=== PATIENT | female | born 2000 | race Caucasian/White ===

== ENCOUNTER 2020-12-30 09:45 | Outpatient (RCR) | payer OTHER, SELFPAY ==
[2020-12-30 11:25] LABS: Hematocrit 32.3 % (37.0-47.0); Hemoglobin 10.7 g/dL (12.0-15.0)
[2020-12-30 11:42] LABS: Glucose 1 Hour PP 50gm Dose 107 mg/dL
[2020-12-30 12:21] LABS: HIV 1/2 Ab P24 Ag Result Negative (Negative)
[2020-12-30] MEDS: RHO(D) IMMUNE GLOBULIN 300 MCG/2 ML SYRINGE IM (20:05)
[2020-12-31 08:26] LABS: Rapid Plasma Reagin Non-Reactive (NonReactive)
== END 2021-03-30 23:59 | disposition home or self-care (01) ==
LOC: ANHLAB 09:45
PROVIDERS: PCP Family Medicine; Visit Provider Obstetrics & Gynecology
DX: Z29.13 Encounter for prophylactic Rho(D) immune globulin (principal); Z11.4 Encounter for screening for human immunodeficiency virus [HIV]; O36.0130 Maternal care for anti-D [Rh] antibodies, third trimester, not applicable or unspecified; Z3A.00 Weeks of gestation of pregnancy not specified
CPT/HCPCS: 36415; 82947; 85014; 85018; 85461; 86592; 86703; 90384; 96372; G0432; J2790

== ENCOUNTER 2021-03-08 19:20 | Observation (INO) | payer MEDICAID, SELFPAY ==
[2021-03-08 19:30] VITALS: BMI 33.5
--- NOTE | 2021-03-08 21:42 | OBADM ---
This patient, Daphnie Mendez, admitted to the OB room Labor/Delivery/Recovery 106 for observation. Patient/family oriented to hospital policies and general routines including ID bracelet, bed and alarms, visiting hours, pain management, procedures, bathroom and other care routines, personal items, smoking policy, room service/diet, and visiting hours. Patient/Family are encouraged to report perceived risks to care and to ask questions if they do not understand what they are told or what they should do.
--- NOTE | 2021-03-12 07:45 | PM.OBTRLD ---
OB - Triage/Final Diagnosis Visit Information Date of evaluation: 03/09/21 Reason for evaluation: threatened labor Comments/Additional reasons for admission: I have assessed the risk for this patient, Daphnie Mendez, and determined that she would benefit from observation care.
== END 2021-03-08 22:01 | disposition home or self-care (01) ==
PROVIDERS: Admitting Provider Obstetrics & Gynecology; Visit Provider Obstetrics & Gynecology
DX: O47.9 False labor, unspecified (principal); Z3A.00 Weeks of gestation of pregnancy not specified
CPT/HCPCS: G0378; G0379

== ENCOUNTER 2021-03-20 01:27 | Inpatient (IN) | payer MEDICAID, SELFPAY ==
[2021-03-20] VITALS (29 sets, daily range): BP systolic 103–132; BP diastolic 58–86; PULSE 66–92; RESP 16–18; TEMP 36.2–36.9; O2SAT 99; BMI 32.5
--- NOTE | 2021-03-20 02:54 | LDADM ---
This patient, Daphnie Mendez, was admitted to Labor/Delivery/Recovery 105 on 03/20/21 at 01:27. Plans for labor, pain management and were discussed with patient. Patient/family oriented to hospital policies and general routines including ID bracelet, bed and alarms, visiting hours, pain management, procedures, bathroom and other care routines, personal items, smoking policy, room service/diet and guest tray routines, infant security routines, and visiting hours. Patient/Family are encouraged to report perceived risks to care and to ask questions if they do not understand what they are told or what they should do. See OBIX for further documentation.
[2021-03-20 03:25] LABS: Basophils Percent Auto 0.3 % (0.2-1.2); Eosinophils Absolute Auto 0.1 K/mm3 (0-0.3); Eosinophils Percent Auto 0.7 % (0-4.4); Hematocrit 30.8 % (37.0-47.0); Hemoglobin 9.9 g/dL (12.0-15.0); Immature Granulocyte Absolute 0.08 K/mm3 (0.00-0.031); Immature Granulocyte Percent A 0.6 % (0-0.5); Lymphocytes Absolute Auto 1.94 K/mm3 (0.9-3.2); Lymphocytes Percent Auto 14.9 % (18.3-44.2); Mean Corpuscular HGB Conc 32.1 g/dl (32-36); Mean Corpuscular Volume 83.9 fl (80-100); Monocytes Absolute Auto 0.7 K/mm3 (0.1-0.6); Monocytes Percent Auto 5.4 % (2.6-8.5); Neutrophils Absolute Auto 10.2 K/mm3 (1.3-6.7); Neutrophils Percent Auto 78.1 % (45.5-73.1); Platelet Count Result 200 k/mm3 (150-375); Red Blood Count 3.67 M/mm3 (4.2-5.4)
[2021-03-20] MEDS: LACTATED RINGERS 1,000 ML 125 ML IV CONT ×2 (03:32→05:23)
[2021-03-20] MEDS: AMPICILLIN 2 GM/NS 100 ML 2 GM/100 ML BAG IVPB (03:33)
[2021-03-20 04:39] LABS: Amphetamine Screen Urine Negative (Negative); Barbiturate Screen Urine Negative (Negative); Benzodiazepines Screen Urine Negative (Negative); Cannabinoid Screen Urine Positive (Negative); Cocaine Screen Urine Negative (Negative); Methadone Screen Urine Negative (Negative); Opiate Screen Urine Negative (Negative); Phencyclidine Screen Urine Negative (Negative)
[2021-03-20] MEDS: OXYTOCIN 30 UNITS/NS 500 ML 30 UNITS/500 ML BAG IV CONT (05:20)
--- NOTE | 2021-03-20 07:27 | WPDOBADMIT ---
Obstetrics - Admit Note Admission Note: 21y/o @ 39 weeks came in [place] and desires staying for elective induction. 3-4//-2 AROM moderate amount of clear odorless fluid. Anticipate record reviewed. No pertinent additions to the history and/or any subsequent changes in the physical findings that are not consistent with the expected course of the were found. Additions to the history and/or subsequent changes in the physical findings follow. None.
[2021-03-20] MEDS: fentaNYL CITRATE INJ (*CRX) 100 MCG/2 ML VIAL IV PUSH (10:05)
[2021-03-20] MEDS: AMPICILLIN 1 GM/NS 50 ML 1 GM/50 ML BAG IVPB (10:09)
--- NOTE | 2021-03-20 11:22 | P.PCNOB_ITS ---
OB - Delivery Note Procedure Delivery date: 03/20/21 Procedure: Intrapartal events: None Induction method: AROM and per pitocin protocol Delivery monitor: external FHT and external uterine Route of delivery: Laceration Description: None Delivery repair: vicryl Specimen: No Quantitative Blood Loss (ml): 50 Anesthesia type: None Disposition: floor [place] Baby Date of : 03/20/21 Time of : 11:07 Weeks of gestation at delivery: 39 Infant gender: Female Weight (pounds): 7 Weight (ounces): 8 presentation: vertex score one minute: 9 score ten minutes: 9
[2021-03-20] MEDS: OXYTOCIN 30 UNITS/NS 500 ML 30 UNITS/500 ML BAG 125 UNITS IV CONT (11:40)
[2021-03-20] MEDS: IBUPROFEN 600 MG TABLET PO (15:16)
[2021-03-20] MEDS: ACETAMINOPHEN 325 MG TABLET 650 MG PO (17:27)
[2021-03-20] MEDS: DOCUSATE SODIUM 100 MG CAPSULE PO (17:28)
[2021-03-20] MEDS: POLYSACCHARIDE IRON COMPLEX 150 MG CAPSULE PO (17:28)
[2021-03-21] VITALS: BP 110/66; PULSE 69; RESP 16; TEMP 37.1; O2SAT 100
[2021-03-21] MEDS: ACETAMINOPHEN 325 MG TABLET 650 MG PO (03:26)
[2021-03-21 04:00] VITALS: BP 111/77; PULSE 61; RESP 16; TEMP 36.8; O2SAT 100
[2021-03-21 05:14] LABS: Hematocrit 30.8 % (37.0-47.0); Hemoglobin 9.7 g/dL (12.0-15.0)
[2021-03-21 07:50] VITALS: BP 111/71; PULSE 68; RESP 16; TEMP 36.5; O2SAT 100
--- NOTE | 2021-03-21 07:57 | PM.OBPNVD ---
OB - PN: Subj Subjective Date/time seen: 03/21/21 07:57 Patient comments: no complaints baby status: doing well OB - PN: Obj Data Labs CBC & Chem 7: 03/21/21 03:49 Labs: Laboratory Results - last 24 hr 03/21/21 03/21/21 03:49 03:49 Hgb 9.7 L Hct 30.8 L Blood Type O Negative Antibody Screen Negative Screen Negative Baby's Blood Type O pos Baby's HANH Negative Doses of RhIg Required 1 OB - PN A/P Plan day: 1 Plan: routine care Time Spent With Patient Time: Total time spent is greater than 50% in coordination of care (as documented) at patient's floor/unit and/or counseling patient: Review of Systems Review of Systems: All systems reviewed & are unremarkable except as noted in HPI and below Exam Const: General: cooperative and healthy appearing Psych: Affect: normal affect Thought process: Normal thought process present Thought content: Yes Normal thought content present
[2021-03-21] MEDS: IBUPROFEN 600 MG TABLET PO ×2 (08:05→17:52)
[2021-03-21] MEDS: DOCUSATE SODIUM 100 MG CAPSULE PO ×2 (08:05→17:52)
[2021-03-21] MEDS: POLYSACCHARIDE IRON COMPLEX 150 MG CAPSULE PO ×2 (08:05→17:52)
[2021-03-21] MEDS: MULTIVIT/MIN/PREN/FOL AC/IRON TABLET 1 TAB PO (08:05)
[2021-03-21] MEDS: FLUoxetine HCL 20 MG CAPSULE PO (08:05)
[2021-03-21 08:52] LABS: Rapid Plasma Reagin Non-Reactive (NonReactive)
--- NOTE | 2021-03-21 09:35 | PC.NURSE ---
Mother called out for assist with feeding, reporting slight tenderness with feedings. is able to freely thrust tongue past gum ridge and flange both lips. Skin is intact on both nipples, no redness and bruising noted. Reviewed infant feeding cues, frequencies, duration of feedings, feeding elimination flow sheet, and signs of adequate intake. Demonstrated stimulation techniques to wake for feeding. Assisted with to breast. Reviewed positioning/alignment in cross cradle, holding breast in ?U? hold and guided asymmetrical latch on. Reviewed rational for each. Infant able to latch correctly within a few attempts. Infant nursed eagerly with steady draws and occasional swallowing noted, some pausing noted. Reviewed signs of a correct latch, effective nursing and suck swallow ratio. Suggested mother stimulate while feeding to increase stimulate, increase intake and to assist with maintaining deep latch. Infant would slip to shallow latch causing tenderness. Demonstrated how to adjust latch more deeply while feeding if needed. Mother reports she can feel the difference in latch with no/less tenderness. Nipple care reviewed of lanolin after feedings, warm compresses as needed. Instructed mother to call out for RN assistance if she is unable to latch infant for feeding or she has discomfort with nursing. Instructed feeding should be initiated three hours from start of last feeding or if feeding cues are noted before. Mother voiced understanding of information shared.
[2021-03-21] MEDS: RHO(D) IMMUNE GLOBULIN 300 MCG/2 ML SYRINGE IM (13:26)
--- NOTE | 2021-03-21 16:11 | PCCCNOTE ---
Care Coordination met with pt. this afternoon to discuss discharge planning. Pt.'s current D/C plan is to return home with her significant other/FOB and two other children. Pt. states she has a 4 year old and 5 year old at home. Pt. has everything needed to safely bring baby home. Pt. confirms she will continue to breast feed baby at time of D/C. She is current with [facility]. Pt. has a stable hand set up for follow-up care and no open DCFS cases. Pt. informed that she tested positive for THC at time of admission. Pt. states she used Marijuana throughout to assist with symptoms and her depression. Pt. confirms she has started taking medication for her depression now that she has delivered. Pt. follows up with her primary doctor of medication management and will be follow-up with [facility]. Pt. denies any D/C needs or concerns at this time. Pt. has been provided resources and a basket. Will follow.
[2021-03-21 19:00] VITALS: BP 117/68; PULSE 73; RESP 16; TEMP 36.8; O2SAT 100
[2021-03-22] MEDS: TETANUS,DIPHTHERIA,AC PERTUSSIS ADULT (0.5 ML) BOOSTRIX IM (00:24)
--- NOTE | 2021-03-22 07:10 | PM.OBPNVD ---
OB - PN: Subj Subjective Date/time seen: 03/22/21 07:10 Patient comments: no complaints baby status: doing well OB - PN: Obj Data Labs CBC & Chem 7: 03/21/21 03:49 Labs: Laboratory Results - last 24 hr 03/20/21 03/21/21 03:15 03:49 RPR Non-reactive Blood Type O Negative Antibody Screen Negative Screen Negative Baby's Blood Type O pos Baby's HANH Negative Doses of RhIg Required 1 OB - PN A/P Plan day: 2 Plan: routine care and discharge home (F/U in 4 weeks) Time Spent With Patient Time: Total time spent is greater than 50% in coordination of care (as documented) at patient's floor/unit and/or counseling patient: Time with patient: less than 15 minutes Review of Systems Review of Systems: All systems reviewed & are unremarkable except as noted in HPI and below Exam Narrative: Fundus firm and vaginal flow controlled. No lower ext redness, warmth, or edema. Negative homans. Const: General: comfortable Chest: Breast/axilla inspection: normal inspection of the breasts Resp: Effort & Inspection: normal respiratory effort Cardio: Rate: regular rate GI: GI Palp: Yes Soft to palpation Psych: Appearance: grossly normal Affect: normal affect Attitude: cooperative Thought content: Yes Normal thought content present Judgement: Good judgement present (Psych)
--- NOTE | 2021-03-22 07:11 | P.DS_ITS ---
DS: Admitting Diagnosis Discharge Date 03/22/2021 Admitting Diagnosis Induction of labor OB - DS: Summary OB Procedures : None OB Procedures Intrapartum: Spontaneous Vag Delivery OB Procedures: : None Time Spent with Patient Time attestation: Total time spent providing and/or coordinating discharge services: DS: Data Data Completed and Pending Labs on day of discharge: Labs from last 24 hours 03/21/21 03/20/21 03:49 03:15 RPR Non-reactive Blood Type O Negative Antibody Screen Negative Screen Negative Baby's Blood Type O pos Baby's HANH Negative Doses of RhIg Required 1 Discharge Plan Discharge Attending physician on discharge: Jose Rafael Decker Discharging Clinician: Mariely Chacon Patient Disposition: Home, Self-Care Activity: pelvic rest Diet: as tolerated Patient Instructions: Antibiotic Form Stand Alone Forms: General Discharge Information Follow-up/Referrals: Mariely Chacon, CNM [Certified Nurse Physiotherapist'S Assistant] - Discharge Medications: Continued fluoxetine 20 mg Tablet 20 mg PO DAILY RF: 0 prenat.vits,jesus,dfv-wnso-jeziw Tablet 1 tablet PO DAILY RF: 0 ferrous sulfate 250 mg (50 mg iron) Tablet Extended Release 250 mg PO DAILY RF: 0 Date of admission: 03/20/21 01:27 Primary Care Provider: Johnie Cason Admitting Provider: Jose Rafael Decker Attending physician on admission: Jose Rafael Decker Condition: Stable
[2021-03-22] MEDS: IBUPROFEN 600 MG TABLET PO (07:38)
[2021-03-22] MEDS: MULTIVIT/MIN/PREN/FOL AC/IRON TABLET 1 TAB PO (07:38)
[2021-03-22] MEDS: DOCUSATE SODIUM 100 MG CAPSULE PO (07:38)
[2021-03-22] MEDS: FLUoxetine HCL 20 MG CAPSULE PO (07:38)
[2021-03-22] MEDS: POLYSACCHARIDE IRON COMPLEX 150 MG CAPSULE PO (07:38)
[2021-03-22 07:40] VITALS: BP 130/79; PULSE 83; RESP 18; TEMP 36.3
--- NOTE | 2021-03-22 07:40 | PC.NURSE ---
Patient instructed to view the discharge video Mother & Baby Care, The First Two Weeks . Patient was given the opportunity and encouraged to ask questions. Patient verbalized understanding of information shared and has been given the mother/baby guide for home reference.
== END 2021-03-22 11:45 | disposition home or self-care (01) | DRG 560 ==
LOC: ANHLDR 03:10 → ANHOB2 14:32
PROVIDERS: Advanced Practice Midwife; Admitting Provider Obstetrics & Gynecology; PCP Family Medicine; Visit Provider Obstetrics & Gynecology
DX: O99.824 Streptococcus B carrier state complicating childbirth (principal); O70.1 Second degree perineal laceration during delivery; Z3A.39 39 weeks gestation of pregnancy; Z37.0 Single live birth
CPT/HCPCS: 36415; 80307; 85014; 85018; 85025; 85461; 86592; 86850; 86900; 86901; 90384; 90715; A9270; J0290; J2590; J2790; J3010; J7120

== ENCOUNTER 2025-02-08 16:34 | Emergency (ER) | payer OTHER, SELFPAY ==
--- NOTE | ~2025-02-08 | US_ITS ---
EXAM: ABDOMEN ULTRASOUND HISTORY: RUQ abd pain radiating to back COMPARISON: Reference is made to a CT examination of the abdomen and pelvis performed approximately 4 5 minutes earlier demonstrating a large right-sided ovarian cyst for which pelvic ultrasound is recom mended. Reference is also made to a limited ultrasound of the right upper quadrant performed 04/14/2016 FINDINGS: LIVER: The liver is unremarkable in echogenicity and size. The portal vein is patent, demonstrating hepatopedal flow. GALLBLADDER: No stones are identified within the gallbladder. A 5 x 6 mm avascular nonshadowing structure is identified along the anterior lateral wall of the gall bladder, likely a gallbladder polyp. No gallbladder wall thickening or pericholecystic fluid. BILE DUCTS: Common bile duct measures 2.3mm. PANCREAS: Limited evaluation of the pancreas secondary to overlying bowel gas IMPRESSION: Limited evaluation of the pancreas secondary to overlying bowel gas 6 mm avascular nonshadowing structure along the undersurface of the anterior lateral wall of the gall bladder for which a polyp is suspected. Otherwise, unremarkable sonographic evaluation of the right upper quadrant, as detailed above. Reviewed, dictated and finalized at location A. IMPRESSION: Limited evaluation of the pancreas secondary to overlying bowel gas 6 mm avascular nonshadowing structure along the undersurface of the anterior la teral wall of the gallbladder for which a polyp is suspected. Otherwise, unremarkable sonographic evaluation of the right upper quadrant, as detailed above.
--- NOTE | ~2025-02-08 | US_ITS ---
EXAM: PELVIC ULTRASOUND HISTORY: R ovary abnml on CT, rads recommends US COMPARISON: . Reference is also made to the CT examination of the abdomen and pelvis performed the same day, approx imately 1 hour earlier FINDINGS: UTERUS: 7.6 x 4.4 x 5.8 cm. The uterus is retroverted and retroflexed. The endometrial complex measures 9, and contains the intrauterine device and surrounding complex debr is. RIGHT OVARY: The right ovary is abnormal in echogenicity and size measuring 4.7 x 4.7 x 4.4 cm. Dopplerable flow is identified. A single anechoic avascular focus is identified within the right ovary measuring 35 x 45 x 43 mm, con sistent with a simple cyst. Surrounding free fluid is identified within the right adnexa. LEFT OVARY: The left ovary is unremarkable in echogenicity and size measuring 2.2 x 1.6 x 1.7 cm Dopplerable flow is identified. Moderate free fluid is identified within the right adnexa and within the deep pelvis, to the right of midline. IMPRESSION: Simple cyst within the right ovary measuring 4.5 cm in greatest dimension for which yearly followup i s recommended until resolution (given that this patient is premenopausal). PLUMBING ENGINEER follow-up is recommended. Reviewed, dictated and finalized at location A. IMPRESSION: Simple cyst within the right ovary measuring 4.5 cm in greatest dimension [facility] is recommended until resolution (given that this patient i s premenopausal). PLUMBING ENGINEER follow-up is recommended.
--- NOTE | ~2025-02-08 | CT_ITS ---
CLINICAL INDICATION: Epigastric and lower abdominal pain, nausea and diarrhea. COMPARISON: None. TECHNIQUE: Multiple contiguous axial images of the abdomen and pelvis were performed following the ad ministration of with 100 mL Omnipaque-350 intravenous contrast The dose-length product (DLP) was 575.79 mGy-cm. Automated exposure control and iterative reconstruction technique were employed. FINDINGS/OBSERVATIONS: Visualized lower thorax: The bilateral lung bases are clear. The heart is of normal size, without pericardial effusion. Liver: The liver demonstrates homogeneous enhancement and is not enlarged. Gallbladder and biliary system: The gallbladder is only minimally distended, and otherwise unremarkable. Pancreas: The pancreas enhances homogeneously without ductal dilatation. Spleen: The spleen enhances homogeneously and is enlarged measuring 14 cm in longitudinal dimension. Kidneys: The bilateral kidneys enhance symmetrically without hydronephrosis or renal calculi. Adrenal glands: Unremarkable. Gastrointestinal tract: The colon is distended with fluid with trace mural thickening, consistent with patient's history of f requent diarrhea. Appendix: The air-filled appendix is of normal caliber (axial series, images 132 through 145). Vasculature: Unremarkable. Lymph nodes: No pathologically enlarged or morphologically suspicious lymph nodes within the retroperitoneum or at the root of the mesentery. Pelvic structures: The bladder is only minimally distended, limiting its evaluation The uterus is retroverted and retroflexed. Intrauterine device within the endometrial canal A well-circumscribed focus of decreased attenuation (consistent with dense fluid) is identified withi n the right hemipelvis measuring 4.5 x 4.6 x 4.2 cm, for which pelvic ultrasound is recommended. Dense free fluid is identified within the posterior cul-de-sac, more than one would expect for physio logic free fluid. Body wall and musculoskeletal: Small fat-containing umbilical hernia. Trace degenerative disease within the lower thoracic and lumbosacral spines. IMPRESSION: Findings within the right ovary for which pelvic ultrasound suggested for further evaluation, as deta iled above. Fluid-filled colon demonstrates trace mural thickening, consistent with patient's history. Reviewed, dictated and finalized at location A. IMPRESSION: Findings within the right ovary for which pelvic ultrasound suggested for furth er evaluation, as detailed above. Fluid-filled colon demonstrates trace mural thickening, consistent with patien t's history.
--- OUTSIDE RECORDS SUMMARY | 2025-02-08 16:36 | XMS_ITS | Clinical Summary ---
Author Organization [facility] Address [address] [place] [address] Care Team Providers Care Real Estate Site Analyst Name Role Phone Max Campos MD Primary Care Provider [phone] Source Comments [facility],non-owned Affiliates and Associated Physician Practices is amultiple site organization consisting of ambulatory clinics and hospital sitesin [place], [place], [place] and [place]. This disclosure is being madepursuant to the Care Everywhere program and may not contain all information available regarding this patient. 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 Gender Identity Not on file Sexual Orientation Not on file Plan of Treatment Health Maintenance Due Date Last Done Comments HIV SCREENING 01/30/2015 HPV VACCINE (1 - 3-dose series) 01/30/2015 CHLAMYDIA/GONORRHEA SCREENING 2016 HEPATITIS C SCREENING 01/26/2018 DTAP/TDAP/TD VACCINES (1 - Tdap) 01/30/2019 HEPATITIS B VACCINE (1 of 3 - 19+ 3-dose series) 01/30/2019 COVID-19 VACCINE (1 - 2023-2 5 season) 2024 DEPRESSION SCREENING 07/05/2024 INFLUENZA VACCINE (#1) 2025 ZOSTER VACCINE (1 of 2) 01/30/2050 MENINGOCOCCAL GROUPS A/C/Y/W VACCINE Completed 04/19/2017 HIB VACCINE Aged Out No longer eligi ble based on patient's age to complete this topic MENINGOCOCCAL (Group B) VACC INE SHARED DECISION-MAKING Aged Out No longer eligibl e based on patient's age to complete this topic PNEUMOCOCCAL VACCINE Aged Out No long er eligible based on patient's age to complete this topic Care Teams Real Estate Site Analyst Relationship Specialty Start Date End Date Max Campos MD [id number] [place] [address] PCP - General Family Medicine 04/19/17
[2025-02-08 16:49] VITALS: BP 124/71; PULSE 88; RESP 20; TEMP 36.6; O2SAT 100
--- NOTE | 2025-02-08 16:53 | ED_ITS ---
HPI - Abdominal Pain General Chief Complaint: Abdominal Pain <Denise Olmstead PA-C - Last Filed: 02/08/25 16:54> Stated Complaint: abdominal pain <Denise Olmstead PA-C - Last Filed: 02/08/25 16:54> Time Seen by Provider: 02/08/25 19:13 <Denise Olmstead PA-C - Last Filed: 02/08/25 16:54> Focused HPI: 25-year-old female presents emergency department for abdominal pain, nausea, diarrhea for the past 3 days. Patient states the pain in her abdomen is in her epigastrium, back and lower abdomen. She describes the pain as a cramping sensation that is intermittent. She went to [facility] emergency department yesterday and was diagnosed with viral gastroenteritis. States she had lab work performed and had IV fluids and Zofran. She did not have any imaging obtained. She denies dysuria, hematuria. She does note that she has had several bouts of diarrhea since the onset of symptoms. She was on Flagyl about a month ago for BV. She denies vaginal discharge or concern for STDs. Patient denies any recent travel. Denies fevers. GENERAL: Tearful, appears uncomfortable HEAD: Normocephalic, atraumatic. CHEST: Clear to auscultation. ?No respiratory distress. ABD: Abdomen soft with tenderness in epigastrium. No rebound or rigidity. No CVA tenderness HEART: Regular rate and rhythm.? NEURO: ?Alert and oriented x3. Patient screened in triage and initial orders placed.? ?Additional care and disposition to be based upon?diagnostic testing and treatment. <Denise Olmstead PA-C - Last Filed: 02/08/25 16:54> History of Present Illness HPI narrative: Agree with the above with the following additions/corrections: 25-year-old female presents with epigastric/right upper quadrant abdominal pain going on for 3 days. Seen at [facility] yesterday and labs and fluid/meds but no imaging performed. She states she has had 5 days of diarrhea that has been nonbloody although she states she might have fissures (?). Patient has been using Tylenol and Motrin until she ran out of these medications. She was not using a lot of NSAIDs prior to her symptoms beginning. Drinks alcohol occasionally. Uses marijuana every few days he no previous abdominal surgeries. She had been nauseated but feels better after receiving medications. Last episode of emesis was 2 days ago. 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 Subjective fevers although her measured temperature was 99.2? when she took it after her noted that she appeared flushed. She has been having chills. Occasionally she will experience low abdominal pain which she states feels like with contractions as well as round ligament pain, familiar with both previously. <Sindi Del Castillo MD - Last Filed: 02/08/25 23:19> Related Data Home Medications: Home Medications ?Medication ?Instructions ?Recorded ?Confirmed ?Last Taken ?Type ferrous sulfate 250 mg (50 mg 250 mg PO DAILY 02/26/21 02/26/21 02/25/21 17:00 History iron) tablet,extended release fluoxetine 20 mg tablet 20 mg PO DAILY 02/26/21 02/26/21 02/25/21 17:00 History prenat.vits,jesus,rjy-[id number]-[id number] 1 tablet PO DAILY 02/26/21 02/26/21 02/26/21 08:00 History <Denise Olmstead PA-C - Last Filed: 02/08/25 16:54> Allergies/Adverse Reactions: Allergies Allergy/AdvReac Type Severity Reaction Status Date / Time buspirone (From BuSpar) Allergy Hives Verified 02/08/25 16:35 <Denise Olmstead PA-C - Last Filed: 02/08/25 16:54> [facility] Past Medical History Medical History: Medical History (Updated 02/08/25 @ 22:30 by Sindi Del Castillo MD) BMI 31.0-31.9,adult Gall bladder disease Diabetes Anxiety <Denise Olmstead PA-C - Last Filed: 02/08/25 16:54> Surgical History Surgical History: Surgical History No significant past surgical history <Denise Olmstead PA-C - Last Filed: 02/08/25 16:54> Family History Family History: Family History Father Hypertension Mother Anxiety Depression Gall bladder pain Sibling Anxiety Depression Grandparent Breast cancer Alzheimer disease <Denise Olmstead PA-C - Last Filed: 02/08/25 16:54> Social History Social History: Social History Social History: Smoking status: Never smoker Tobacco type: cigarettes Second hand tobacco smoke exposure: No Alcohol intake: former Substance use: current Substance use type: marijuana Other substance usage details: Every few days Living arrangements: with family Additional living arrangements comments: Occupation/Education: unemployed 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 HEAD: Normocephalic, atraumatic. EYES: Non injected, non icteric ENT: Nares clear, no rhinorrhea or epistaxis. Gross auditory acuity intact. NECK: Supple. No meningismus. CHEST: Speaking in full sentences. No respiratory distress. HEART: Regular rate and rhythm. . ABDOMEN: Soft, nondistended. No rigidity or guarding. Not peritoneal. No overlying ecchymosis. She had taken bellybutton ring out and replaced the holes with a catheter sheeth in the interim EXTREMITIES: Normal range of motion. No lower extremity edema. SKIN: Warm, dry, no rash. NEURO: No focal deficits. Alert and oriented. Answering questions. Following commands. Normal speech without aphasia or dysarthria. PSYCH: Normal mood and affect. <Sindi Del Castillo MD - Last Filed: 02/08/25 23:19> Course Vital Signs Vital signs: Vital Signs Temperature 97.8 F 02/08/25 16:49 Pulse Rate 88 02/08/25 16:49 Respiratory Rate 20 02/08/25 16:49 Blood Pressure 124/71 02/08/25 16:49 Pulse Oximetry 100 02/08/25 16:49 Oxygen Delivery Room Air 02/08/25 16:49 Temperature 97.8 F 02/08/25 16:49 Pulse Rate 81 02/08/25 22:57 Respiratory Rate 18 02/08/25 22:57 Blood Pressure 121/68 02/08/25 22:57 Pulse Oximetry 100 02/08/25 22:57 Oxygen Delivery Room Air 02/08/25 19:34 <Denise Olmstead PA-C - Last Filed: 02/08/25 16:54> Vital Signs Temperature 97.8 F 02/08/25 16:49 Pulse Rate 88 02/08/25 16:49 Respiratory Rate 20 02/08/25 16:49 Blood Pressure 124/71 02/08/25 16:49 Pulse Oximetry 100 02/08/25 16:49 Oxygen Delivery Room Air 02/08/25 16:49 Temperature 97.8 F 02/08/25 16:49 Pulse Rate 81 02/08/25 22:57 Respiratory Rate 18 02/08/25 22:57 Blood Pressure 121/68 02/08/25 22:57 Pulse Oximetry 100 02/08/25 22:57 Oxygen Delivery Room Air 02/08/25 19:34 <Sindi Del Castillo MD - Last Filed: 02/08/25 23:19> MDM - Abdominal Pain MDM Narrative Medical decision making narrative: MSE in triage 25-year-old female presents with epigastric/right upper quadrant abdominal pain of 3 days duration. Also some lower abd pain. Associated with 5 days of diarrhea. Seen for the same at [facility] yesterday but no imaging performed and not improving. In the emergency department they are afebrile with vital signs within normal limits. The differential for acute ( less than 14d) diarrhea includes infectious etiologies (viral, preformed toxins, toxins formed after colonization, invasive bacteria, and parasites), medications, inflammatory causes (IBD, radiation enteritis, ischemic colitis, diverticulitis), malabsorption, secretory causes, or motility disorders. CBC with abnormalities on the differential but otherwise without anemia, thrombocytopenia, leukocytosis. Lipase normal. Negative . Patient feeling a bit better after IV fluids, antiemetic and famotidine ordered from triage. C diff negative. Based on the CT with the abnormalities noted, proceeded with ultrasound imaging of both. These resulted as below. Provided prescriptions for [id number] analgesics medications, Bentyl, and Zofran. Advised follow-up with PCP but also given referrals for OB Gyne in general surgery as needed. Discharged home in stable condition. Observed ambulating out of room not of department and appears to be feeling better, ambulates with steady gait. <Sindi Del Castillo MD - Last Filed: 02/08/25 23:19> Differential Diagnosis Differential diagnosis: Likely abdominal pain, constipation, diverticulitis, endometriosis, gastroenteritis, pancreatitis and other (Biliary etiology, gastritis, GERD, enteritis, sequelae of diarrhea; cannabinoid hyperemesis syndrome; acute viral process) <Sindi Del Castillo MD - Last Filed: 02/08/25 23:19> Medical Records Attestation: I reviewed the patient's medical records. <Sindi Del Castillo MD - Last Filed: 02/08/25 23:19> Medical records narrative: History gallbladder disease per review of EMR <Sindi Del Castillo MD - Last Filed: 02/08/25 23:19> Lab Data Attestation: I reviewed the patient's lab results. <Sindi Del Castillo MD - Last Filed: 02/08/25 23:19> Lab results narrative: Chemistry with normal renal function in no marked abnormalities <Sindi Del Castillo MD - Last Filed: 02/08/25 23:19> Result diagrams: 02/08/25 18:40 02/08/25 18:40 <Denise Olmstead PA-C - Last Filed: 02/08/25 16:54> Labs: Lab Results 02/08/25 02/08/25 Range/Units 18:35 18:40 WBC 8.1 (4.5-10.0) K/mm3 RBC 4.78 (4.2-5.4) M/mm3 Hgb 14.4 D (12.0-15.0) g/dL Hct 42.4 (37.0-47.0) % MCV 88.7 (80-100) fl MCH 30.1 (26-34) pg MCHC 34.0 (32-36) g/dl RDW 12.3 (11.5-14.5) % Plt Count 229 (150-375) k/mm3 MPV 9.7 (7.4-10.4) fl Immature Gran % (Auto) 0.2 (0-0.5) % Neut % (Auto) 74.6 H (45.5-73.1) % Lymph % (Auto) 13.6 L (18.3-44.2) % O'Brien % (Auto) 9.5 H (2.6-8.5) % Eos % (Auto) 1.7 (0-4.4) % Baso % (Auto) 0.4 (0.2-1.2) % Lymph # (Auto) 1.10 (0.9-3.2) K/mm3 O'Brien # (Auto) 0.8 H (0.1-0.6) K/mm3 Eos # (Auto) 0.1 (0-0.3) K/mm3 Baso # (Auto) 0.0 (0.0-0.1) K/mm3 Abs Immat Gran (auto) 0.02 (0.00-0.031) K/mm3 Absolute Neuts (auto) 6.0 (1.3-6.7) K/mm3 Absolute Nucleated RBC 0.000 (0.0-0.012) K/mm3 Nucleated RBC % 0.0 (0.0-0.2) % Sodium 139 (137-145) mmol/L Potassium 3.6 (3.4-5.0) mmol/L Chloride 105 (98-107) mmol/L Carbon Dioxide 24 (22-30) mmol/L Anion Gap 10 (4-12) mmol/L BUN 4 L (7-17) mg/dL Creatinine 0.63 L (0.7-1.0) mg/dL Estim Creat Clear Calc 127 ml/min Estimated GFR > 60 (59 - ) Glucose 87 (65-110) mg/dL Calcium 9.1 (8.4-10.2) mg/dL Total Bilirubin 0.7 (0.2-1.3) mg/dL AST 29 (14-36) U/L ALT 19 (6-35) U/L Alkaline Phosphatase 62 (38-126) U/L Total Protein 7.9 (6.3-8.2) g/dL Albumin 4.4 (3.5-5.1) g/dL Lipase 36 (23-300) U/L Urine Color Yellow (Yellow) Urine Appearance Clear (Clear) Urine pH 7.5 (5.0-9.0) Ur Specific [place] 1.006 (1.001-1.035) Urine Protein Negative (Negative) mg/dL Urine Glucose (UA) Negative (Negative) mg/dL Urine Ketones Trace H (Negative) mg/dL Ur Blood (Man) Negative (Negative) Urine Nitrate Negative (Negative) Urine Bilirubin Negative (Negative) Urine Urobilinogen 0.2 (<2.0) mg/dL Leukocyte Esterase Rfl Trace H (Negative) JUAN/UL Urine RBC 0-2 (0-2) /hpf Urine WBC 0-5 (0-3) /hpf Ur Squamous Epith Cells None seen (Few) /hpf Urine Bacteria None seen /hpf Urine Casts 0-2 POC Urine HCG, Qual Negative (Negative) C. difficile (PCR) Negative (NEGATIVE) <Denise Olmstead PA-C - Last Filed: 02/08/25 16:54> Lab Results 02/08/25 02/08/25 Range/Units 18:35 18:40 WBC 8.1 (4.5-10.0) K/mm3 RBC 4.78 (4.2-5.4) M/mm3 Hgb 14.4 D (12.0-15.0) g/dL Hct 42.4 (37.0-47.0) % MCV 88.7 (80-100) fl MCH 30.1 (26-34) pg MCHC 34.0 (32-36) g/dl RDW 12.3 (11.5-14.5) % Plt Count 229 (150-375) k/mm3 MPV 9.7 (7.4-10.4) fl Immature Gran % (Auto) 0.2 (0-0.5) % Neut % (Auto) 74.6 H (45.5-73.1) % Lymph % (Auto) 13.6 L (18.3-44.2) % O'Brien % (Auto) 9.5 H (2.6-8.5) % Eos % (Auto) 1.7 (0-4.4) % Baso % (Auto) 0.4 (0.2-1.2) % Lymph # (Auto) 1.10 (0.9-3.2) K/mm3 [place]Brien # (Auto) 0.8 H (0.1-0.6) K/mm3 Eos # (Auto) 0.1 (0-0.3) K/mm3 Baso # (Auto) 0.0 (0.0-0.1) K/mm3 Abs Immat Gran (auto) 0.02 (0.00-0.031) K/mm3 Absolute Neuts (auto) 6.0 (1.3-6.7) K/mm3 Absolute Nucleated RBC 0.000 (0.0-0.012) K/mm3 Nucleated RBC % 0.0 (0.0-0.2) % Sodium 139 (137-145) mmol/L Potassium 3.6 (3.4-5.0) mmol/L Chloride 105 (98-107) mmol/L Carbon Dioxide 24 (22-30) mmol/L Anion Gap 10 (4-12) mmol/L BUN 4 L (7-17) mg/dL Creatinine 0.63 L (0.7-1.0) mg/dL Estim Creat Clear Calc 127 ml/min Estimated GFR > 60 (59 - ) Glucose 87 (65-110) mg/dL Calcium 9.1 (8.4-10.2) mg/dL Total Bilirubin 0.7 (0.2-1.3) mg/dL AST 29 (14-36) U/L ALT 19 (6-35) U/L Alkaline Phosphatase 62 (38-126) U/L Total Protein 7.9 (6.3-8.2) g/dL Albumin 4.4 (3.5-5.1) g/dL Lipase 36 (23-300) U/L Urine Color Yellow (Yellow) Urine Appearance Clear (Clear) Urine pH 7.5 (5.0-9.0) Ur Specific [place] 1.006 (1.001-1.035) Urine Protein Negative (Negative) mg/dL Urine Glucose (UA) Negative (Negative) mg/dL Urine Ketones Trace H (Negative) mg/dL Ur Blood (Man) Negative (Negative) Urine Nitrate Negative (Negative) Urine Bilirubin Negative (Negative) Urine Urobilinogen 0.2 (<2.0) mg/dL Leukocyte Esterase Rfl Trace H (Negative) JUAN/UL Urine RBC 0-2 (0-2) /hpf Urine WBC 0-5 (0-3) /hpf Ur Squamous Epith Cells None seen (Few) /hpf Urine Bacteria None seen /hpf Urine Casts 0-2 POC Urine HCG, Qual Negative (Negative) C. difficile (PCR) Negative (NEGATIVE) <Sindi Del Castillo MD - Last Filed: 02/08/25 23:19> Imaging Data Radiologist's impression: ITS Impressions Abdomen/Pelvis CT 02/08/25 19:37 IMPRESSION: Findings within the right ovary for which pelvic ultrasound suggested for further evaluation, as detailed above. Fluid-filled colon demonstrates trace mural thickening, consistent with patient's history. Abdomen Ultrasound 02/08/25 20:42 IMPRESSION: Limited evaluation of the pancreas secondary to overlying bowel gas 6 mm avascular nonshadowing structure along the undersurface of the anterior lateral wall of the gallbladder for which a polyp is suspected. Otherwise, unremarkable sonographic evaluation of the right upper quadrant, as detailed above. Transvaginal US 02/08/25 21:27 IMPRESSION: Simple cyst within the right ovary measuring 4.5 cm in greatest dimension for which yearly followup is recommended until resolution (given that this patient is premenopausal). GEOSPATIAL SCIENTIST follow-up is recommended. <Denise Olmstead PA-C - Last Filed: 02/08/25 16:54> ITS Impressions Abdomen/Pelvis CT 02/08/25 19:37 IMPRESSION: Findings within the right ovary for which pelvic ultrasound suggested for further evaluation, as detailed above. Fluid-filled colon demonstrates trace mural thickening, consistent with patient's history. Abdomen Ultrasound 02/08/25 20:42 IMPRESSION: Limited evaluation of the pancreas secondary to overlying bowel gas 6 mm avascular nonshadowing structure along the undersurface of the anterior lateral wall of the gallbladder for which a polyp is suspected. Otherwise, unremarkable sonographic evaluation of the right upper quadrant, as detailed above. Transvaginal US 02/08/25 21:27 IMPRESSION: Simple cyst within the right ovary measuring 4.5 cm in greatest dimension for which yearly followup is recommended until resolution (given that this patient is premenopausal). GEOSPATIAL SCIENTIST follow-up is recommended. <Sindi Del Castillo MD - Last Filed: 02/08/25 23:19> Discharge Plan Discharge Clinical Impression: Abdominal pain, RUQ, Acute diarrhea, Abnormal ultrasound of gallbladder, Biliary colic, Cyst of right ovary <Denise Olmstead PA-C - Last Filed: 02/08/25 16:54> Patient Disposition: Home <Denise Olmstead PA-C - Last Filed: 02/08/25 16:54> Condition: Stable <Denise Olmstead PA-C - Last Filed: 02/08/25 16:54> Instructions: Antibiotic Form, Ovarian Cyst (ED), Biliary Colic (ED), Acute Diarrhea (ED), Abdominal Pain (ED) <Denise Olmstead PA-C - Last Filed: 02/08/25 16:54> Additional Instructions: Your gallbladder showed some shadowing on ultrasound felt to represent a polyp. No surgical emergency. However, your symptoms sound consistent with biliary colic and I advise you start with diet modification to see if symptoms improve. If your attacks continue/become more frequent, you can discuss with a general surgeon elective removal. In addition you had a Simple cyst within the right ovary measuring 4.5 cm in greatest dimension for which yearly followup is recommended until resolution (given you are premenopausal). GEOSPATIAL SCIENTIST follow-up is recommended. 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 NSAIDs like ibuprofen/Motrin usually work better for this type of pain as it also helps with inflammation. Acetaminophen/Tylenol (maximum 4000 mg per day) is safe to take with NSAIDs (ibuprofen/Motrin) for pain relief. For the diarrhea, rest and maintain your hydration. Drink plenty of water. Can supplement with pedialyte/Gatorade (does not have to be name brand). Recommend avoiding using Immodium AD unless absolutely necessary as it needs to run its course. If you have nausea/vomiting, the disintegrating tablets of ondansetron/Zofran may help. The Bentyl/dicyclomine can help with the cramping sensation as it works on the smooth muscle of the GI tract. <MADISON Adhikari Last Filed: 02/08/25 16:54> Patient Language: [place] <MADISON Adhikari Last Filed: 02/08/25 16:54> Prescriptions: New ondansetron 4 mg tablet,disintegrating 4 mg PO Q8H PRN (Reason: nausea and vomiting) Qty: 7 0RF dicyclomine 10 mg capsule 10 mg PO BID PRN (Reason: abdominal pain) Qty: 10 0RF ibuprofen 600 mg tablet 600 mg PO TID PRN (Reason: pain) Qty: 30 0RF acetaminophen 500 mg capsule 1,000 mg PO Q6H PRN (Reason: pain) Qty: 30 0RF No Action fluoxetine 20 mg Tablet 20 mg PO DAILY prenat.vits,jesus,kyk-hjms-badqj Tablet 1 tablet PO DAILY ferrous sulfate 250 mg (50 mg iron) Tablet Extended Release 250 mg PO DAILY <Denise Olmstead PA-C - Last Filed: 02/08/25 16:54> Follow-up/Referrals: Yusef Mas MD [Physician] - Johnie Cason MD [Primary Care Provider] - Jaylan Anderson MD [Physician] - (general surgery) <Denise Olmstead PA-C - Last Filed: 02/08/25 16:54> Stand Alone Forms: Work/School Release IP <Denise Olmstead PA-C - Last Filed: 02/08/25 16:54> Time of Disposition: 22:34 <Denise Olmstead PA-C - Last Filed: 02/08/25 16:54> 22:34 <Sindi Del Castillo MD - Last Filed: 02/08/25 23:19>
[2025-02-08 18:37] LABS: BEDSIDEPREGUCG Negative (Negative)
[2025-02-08] MEDS: ONDANSETRON INJ 4 MG/2 ML VIAL IV PUSH (18:43)
[2025-02-08 18:57] LABS: Hematocrit 42.4 % (37.0-47.0); Hemoglobin 14.4 g/dL (12.0-15.0); Immature Granulocyte Percent A 0.2 % (0-0.5); Lymphocytes Absolute Auto 1.10 K/mm3 (0.9-3.2); Mean Corpuscular HGB Conc 34.0 g/dl (32-36); Mean Corpuscular Hemoglobin 30.1 pg (26-34); Mean Corpuscular Volume 88.7 fl (80-100); Nucleated Red Blood Cells Absolute Auto 0.000 K/mm3 (0.0-0.012); Nucleated Red Blood Cells Perc 0.0 % (0.0-0.2); Platelet Count Result 229 k/mm3 (150-375); Red Blood Count 4.78 M/mm3 (4.2-5.4); White Blood Count 8.1 K/mm3 (4.5-10.0)
[2025-02-08 19:01] LABS: Add Urine Microscopic? YES; Appearance Urine Clear (Clear); Glucose Urine UA Negative (Negative); Leukocyte Esterase Ur Trace LEU/UL (Negative); Nitrate Urine Negative (Negative); Non Pathogenic Casts 0-2; Specific Grav Ur 1.006 (1.001-1.035)
[2025-02-08 19:07] LABS: Alanine Aminotransferase 19 U/L (6-35); Albumin Level 4.4 g/dL (3.5-5.1); Alkaline Phosphatase 62 U/L (38-126); Anion Gap 10 mmol/L (4-12); Aspartate Amino Transferase 29 U/L (14-36); Bilirubin,Total 0.7 mg/dL (0.2-1.3); Blood Urea Nitrogen 4 mg/dL (7-17); Calcium 9.1 mg/dL (8.4-10.2); Carbon Dioxide 24 mmol/L (22-30); Chloride 105 mmol/L (98-107); Estimated CRCL calculation 127 ml/min; Estimated Glomerular Filt Rate > 60; Glucose 87 mg/dL (65-110); Lipase 36 U/L (23-300); Potassium 3.6 mmol/L (3.4-5.0); Sodium 139 mmol/L (137-145); Total Protein 7.9 g/dL (6.3-8.2)
[2025-02-08 19:34] VITALS: BP 119/72; PULSE 81; RESP 18; O2SAT 100
[2025-02-08] MEDS: SODIUM CHLORIDE 0.9% IV 1,000 ML 999 ML IV CONT (19:34)
[2025-02-08] MEDS: FAMOTIDINE 20 MG/2 ML VIAL IV PUSH (19:34)
[2025-02-08 19:43] LABS: Toxigenic C. Diff NEGATIVE (NEGATIVE)
--- OUTSIDE RECORDS SUMMARY | 2025-02-08 19:57 | XMS_ITS | Clinical Summary ---
Author Organization [facility] Address [address] [place] [address] Care Team Providers Care Claims Clerk Name Role Phone Max Campos MD Primary Care Provider [phone] Source Comments [facility],non-owned Affiliates and Associated Physician Practices is amultiple site organization consisting of ambulatory clinics and hospital sitesin [place], [place], [place] and [place]. This disclosure is being madepursuant to the Care Everywhere program and may not contain all information available regarding this patient. 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
[2025-02-08 21:29] VITALS: BP 104/55; PULSE 67; RESP 18; O2SAT 99
[2025-02-08] MEDS: DICYCLOMINE HCL 10 MG CAPSULE PO (22:56)
[2025-02-08 22:57] VITALS: BP 121/68; PULSE 81; RESP 18; O2SAT 100
== END 2025-02-08 22:58 | disposition home or self-care (01) ==
PROVIDERS: Physician Assistant; Emergency Provider Student in an Organized Health Care Education/Training Program; PCP Family Medicine
DX: R10.11 Right upper quadrant pain (principal); R19.7 Diarrhea, unspecified; N83.291 Other ovarian cyst, right side; R93.2 Abnormal findings on diagnostic imaging of liver and biliary tract; E11.9 Type 2 diabetes mellitus without complications; F41.9 Anxiety disorder, unspecified; Z79.899 Other long term (current) drug therapy
CPT/HCPCS: 36415; 74177; 76705; 76830; 80053; 81001; 81025; 83690; 85025; 87045; 87046; 87427; 87493; 96361; 96374; 96375; 99284; A9270; J2405; J7030; Q9967

== ENCOUNTER 2025-02-12 00:26 | Emergency (ER) | payer OTHER, SELFPAY ==
--- OUTSIDE RECORDS SUMMARY | 2025-02-12 00:28 | XMS_ITS | Clinical Summary ---
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non-owned Affiliates and Associated Physician Practices is amultiple site organization consisting of ambulatory clinics and hospital sitesin [place], [place], [place] and [place]. This disclosure is being madepursuant to the Care Everywhere program and may not contain all information available regarding this patient. Last updated 18.[facility] 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
[2025-02-12 00:37] VITALS: BP 160/100; PULSE 72; RESP 18; TEMP 36.9; O2SAT 100
[2025-02-12 00:55] VITALS: BP 149/89; PULSE 72; RESP 12; O2SAT 100
[2025-02-12 01:03] LABS: Hematocrit 37.0 % (37.0-47.0); Hemoglobin 12.4 g/dL (12.0-15.0); Immature Granulocyte Percent A 0.2 % (0-0.5); Lymphocytes Absolute Auto 1.96 K/mm3 (0.9-3.2); Mean Corpuscular HGB Conc 33.5 g/dl (32-36); Mean Corpuscular Hemoglobin 30.0 pg (26-34); Mean Corpuscular Volume 89.6 fl (80-100); Nucleated Red Blood Cells Absolute Auto 0.000 K/mm3 (0.0-0.012); Nucleated Red Blood Cells Perc 0.0 % (0.0-0.2); Platelet Count Result 201 k/mm3 (150-375); Red Blood Count 4.13 M/mm3 (4.2-5.4); White Blood Count 5.5 K/mm3 (4.5-10.0)
--- NOTE | 2025-02-12 01:11 | ED_ITS ---
HPI - GI Bleed General Chief complaint: GI Bleed Stated complaint: blood in stool Time Seen by Provider: 02/12/25 01:01 Source: patient Mode of arrival: ambulatory Limitations: no limitations History of Present Illness HPI Narrative: This is a 25-year-old female that presents to the emergency department for bright red blood per rectum. Reports over the last week she has been struggling with diarrhea. She has been evaluated our ER as well as another facility for this. Has been taking Bentyl, yagf-[id number]-[id number] pain medications. Tonight she used the restroom and noted bright red blood in the toilet which prompted her to be seen again. Related Data Home Medications ?Medication ?Instructions ?Recorded ?Confirmed ?Last Taken ?Type ferrous sulfate 250 mg (50 mg 250 mg PO DAILY 02/26/21 02/26/21 02/25/21 17:00 History iron) tablet,extended release fluoxetine 20 mg tablet 20 mg PO DAILY 02/26/21 02/26/21 02/25/21 17:00 History prenat.vits,jesus,acj-ufdc-lpnot 1 tablet PO DAILY 02/26/21 02/26/21 02/26/21 08:00 History Allergies Allergy/AdvReac Type Severity Reaction Status Date / Time buspirone (From BuSpar) Allergy Hives Verified 02/08/25 16:35 Review of Systems 2 Review of Systems: All systems reviewed & are unremarkable except as noted in HPI and below PMFSH Past Medical History Medical History (Updated 02/12/25 @ 01:44 by Lois Ferraro PA-C) BMI 31.0-31.9,adult Gall bladder disease Diabetes Anxiety Surgical History Surgical History No significant past surgical history Family History Family History Father Hypertension Mother Anxiety Depression Gall bladder pain Sibling Anxiety Depression Grandparent Breast cancer Alzheimer disease Social History Social History Social History: Smoking status: Never smoker Tobacco type: cigarettes Second hand tobacco smoke exposure: No Alcohol intake: former Substance use: current Substance use type: marijuana Other substance usage details: Every few days Living arrangements: with family Additional living arrangements comments: Occupation/Education: unemployed 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 HEAD: Normocephalic, atraumatic. EYES: EOMI. CHEST: Clear to auscultation. No respiratory distress. No wheezes rales or rhonchi HEART: Regular rate and rhythm. No murmur heard. Normal peripheral pulses. ABDOMEN: Soft, nontender, nondistended, normal active bowel sounds. EXTREMITIES: Normal range of motion. No edema. SKIN: Warm, dry, no rash. NEURO: No focal deficits. Alert and oriented x3. PSYCH: Normal mood and affect RECTAL: External hemorrhoids present, nonthrombosed. No active bleeding. Hemoccult positive Course Vital Signs Vital signs: Vital Signs Temperature 98.4 F 02/12/25 00:37 Pulse Rate 72 02/12/25 00:37 Respiratory Rate 18 02/12/25 00:37 Blood Pressure 160/100 H 02/12/25 00:37 Pulse Oximetry 100 02/12/25 00:37 Oxygen Delivery Room Air 02/12/25 00:37 Temperature 98.4 F 02/12/25 00:37 Pulse Rate 72 02/12/25 00:55 Respiratory Rate 12 02/12/25 00:55 Blood Pressure 149/89 H 02/12/25 00:55 Pulse Oximetry 100 02/12/25 00:55 Oxygen Delivery Room Air 02/12/25 00:37 MDM - GI Bleed MDM Narrative Medical decision making narrative: Patient presents the emergency department for diarrhea, noting blood in the toilet tonight. She is afebrile and nontoxic appearing. Her vitals are stable. Hemoglobin is normal. Metabolic panel without concerning findings. No active bleeding on exam. She did have external hemorrhoids which were nonthrombosed. Hemoccult positive. She is CT abdomen pelvis present formed 3 days ago which showed some mural thickening of the colon. Her stool cultures have been negative thus far. With continued diarrhea, blood in the stool, will start patient on oral antibiotics for colitis. Will be given information for follow- up with GI. She was given warnings to return to the ER Differential Diagnosis Differential diagnosis: Likely hemorrhoids, infectious diarrhea, Lower gastrointestinal hemorrhage, hematochezia and anal fissure Medical Records Attestation: I reviewed the patient's medical records. Medical records narrative: CT abd/pelvis 02/08/25: IMPRESSION: Findings within the right ovary for which pelvic ultrasound suggested for further evaluation, as detailed above. Fluid-filled colon demonstrates trace mural thickening, consistent with patient's history. US pelvis 02/08/25: IMPRESSION: Simple cyst within the right ovary measuring 4.5 cm in greatest dimension for which yearly followup is recommended until resolution (given that this patient is premenopausal). Lab Data Attestation: I reviewed the patient's lab results. 02/12/25 00:49 02/12/25 00:49 Labs: Lab Results 02/12/25 Range/Units 00:49 WBC 5.5 (4.5-10.0) K/mm3 RBC 4.13 L (4.2-5.4) M/mm3 Hgb 12.4 (12.0-15.0) g/dL Hct 37.0 (37.0-47.0) % MCV 89.6 (80-100) fl MCH 30.0 (26-34) pg MCHC 33.5 (32-36) g/dl RDW 12.4 (11.5-14.5) % Plt Count 201 (150-375) k/mm3 MPV 10.2 (7.4-10.4) fl Immature Gran % (Auto) 0.2 (0-0.5) % Neut % (Auto) 51.3 (45.5-73.1) % Lymph % (Auto) 35.8 (18.3-44.2) % [place] % (Auto) 8.6 H (2.6-8.5) % Eos % (Auto) 3.6 (0-4.4) % Baso % (Auto) 0.5 (0.2-1.2) % Lymph # (Auto) 1.96 (0.9-3.2) K/mm3 [place] # (Auto) 0.5 (0.1-0.6) K/mm3 Eos # (Auto) 0.2 (0-0.3) K/mm3 Baso # (Auto) 0.0 (0.0-0.1) K/mm3 Abs Immat Gran (auto) 0.01 (0.00-0.031) K/mm3 Absolute Neuts (auto) 2.8 (1.3-6.7) K/mm3 Absolute Nucleated RBC 0.000 (0.0-0.012) K/mm3 Band Neutrophils % Not Reportable Nucleated RBC % 0.0 (0.0-0.2) % Atypical Lymphocytes Present Platelet Estimate Adequate (Adequate) Schistocytes None seen PT 14.3 (11.1-14.7) Seconds INR 1.1 APTT 39.6 H (22.3-36.8) Seconds Sodium 136 L (137-145) mmol/L Potassium 3.5 (3.4-5.0) mmol/L Chloride 105 (98-107) mmol/L Carbon Dioxide 27 (22-30) mmol/L Anion Gap 4 (4-12) mmol/L BUN 6 L (7-17) mg/dL Creatinine 0.66 L (0.7-1.0) mg/dL Estim Creat Clear Calc 123 ml/min Estimated GFR > 60 (59 - ) Glucose 95 (65-110) mg/dL Calcium 8.2 L (8.4-10.2) mg/dL Total Bilirubin 0.3 (0.2-1.3) mg/dL AST 32 (14-36) U/L ALT 24 (6-35) U/L Alkaline Phosphatase 49 (38-126) U/L Total Protein 6.8 (6.3-8.2) g/dL Albumin 4.0 (3.5-5.1) g/dL Blood Type O Negative Antibody Screen Negative Critical Care Time Critical Care Time Critical Care Time: No Discharge Plan Discharge Clinical Impression: Colitis Patient Disposition: Home Condition: Stable Instructions: Antibiotic Form, Colitis (ED) Additional Instructions: Return to the ER if you experience fever, abdominal pain with nausea and vomiting, you are unable to keep down liquids or solids, you pass out, or any other symptoms that are concerning to you Small, frequent meals. Mcwilliams diet. Remain well hydrated. Take oral antibiotics as prescribed Follow up with primary care doctor Patient Language: Polish Prescriptions: New ciprofloxacin HCl [Cipro] 500 mg tablet 500 mg PO Q12H 5 Days Qty: 10 0RF metronidazole 500 mg tablet 500 mg PO Q12H 5 Days Qty: 10 0RF No Action ondansetron 4 mg tablet,disintegrating 4 mg PO Q8H PRN (Reason: nausea and vomiting) Qty: 7 0RF dicyclomine 10 mg capsule 10 mg PO BID PRN (Reason: abdominal pain) Qty: 10 0RF ibuprofen 600 mg tablet 600 mg PO TID PRN (Reason: pain) Qty: 30 0RF acetaminophen 500 mg capsule 1,000 mg PO Q6H PRN (Reason: pain) Qty: 30 0RF fluoxetine 20 mg Tablet 20 mg PO DAILY prenat.vits,jesus,ofr-megx-kwqju Tablet 1 tablet PO DAILY ferrous sulfate 250 mg (50 mg iron) Tablet Extended Release 250 mg PO DAILY Follow-up/Referrals: Johnie Cason MD [Primary Care Provider] - Ludwig Hu MD [Physician] -
[2025-02-12 01:12] LABS: INR 1.1; Prothrombin Time 14.3 Seconds (11.1-14.7)
[2025-02-12 01:13] LABS: Partial Thromboplastin Time 39.6 Seconds (22.3-36.8)
[2025-02-12 01:14] LABS: Alanine Aminotransferase 24 U/L (6-35); Albumin Level 4.0 g/dL (3.5-5.1); Alkaline Phosphatase 49 U/L (38-126); Anion Gap 4 mmol/L (4-12); Aspartate Amino Transferase 32 U/L (14-36); Bilirubin,Total 0.3 mg/dL (0.2-1.3); Blood Urea Nitrogen 6 mg/dL (7-17); Calcium 8.2 mg/dL (8.4-10.2); Carbon Dioxide 27 mmol/L (22-30); Chloride 105 mmol/L (98-107); Estimated CRCL calculation 123 ml/min; Estimated Glomerular Filt Rate > 60; Glucose 95 mg/dL (65-110); Potassium 3.5 mmol/L (3.4-5.0); Sodium 136 mmol/L (137-145); Total Protein 6.8 g/dL (6.3-8.2)
--- OUTSIDE RECORDS SUMMARY | 2025-02-12 01:24 | XMS_ITS | Clinical Summary ---
Author Organization [facility] Address [address] [place] [address] Care Team Providers Care Outside Rigger Name Role Phone Max Campos MD Primary Care Provider [phone] Source Comments [email or web address],non-owned Affiliates and Associated Physician Practices is amultiple site organization consisting of ambulatory clinics and hospital sitesin [place], [place], [place] and [place]. This disclosure is being madepursuant to the Care Everywhere program and may not contain all information available regarding this patient. 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
[2025-02-12 01:40] LABS: Schistocytes None Seen
[2025-02-12 03:02] VITALS: BP 111/64; PULSE 67; RESP 22; O2SAT 99
== END 2025-02-12 02:50 | disposition home or self-care (01) ==
PROVIDERS: Student in an Organized Health Care Education/Training Program; Emergency Provider Physician Assistant; PCP Family Medicine
DX: K52.9 Noninfective gastroenteritis and colitis, unspecified (principal); E11.9 Type 2 diabetes mellitus without complications; F41.9 Anxiety disorder, unspecified; Z79.899 Other long term (current) drug therapy
CPT/HCPCS: 36415; 80053; 85025; 85610; 85730; 86850; 86900; 86901; 99283

== ENCOUNTER 2025-04-08 19:26 | Emergency (ER) | payer OTHER, SELFPAY ==
[2025-04-08 19:43] VITALS: BP 118/67; PULSE 83; RESP 13; TEMP 36.6; O2SAT 100
--- OUTSIDE RECORDS SUMMARY | 2025-04-08 20:50 | XMS_ITS | Data Portability ---
Author Organization '[facility] Address [address] [place] [address] Care Team Providers Care English Drawer Name Role Phone DANIELLE JACOBS Primary Care Provider Assessment Encounter Date Assessment Date Assessment LastModified by Organization Details LastModified Time 02/07/2025 02/07/2025 Annual gynecological exam performed. Patient will come back in a year unless there are new symptoms. [email or web address] Not available 02/07/2025 10:28:10 Plan of Treatment Reminders Order Date Submit Date Provider Last Modified By Organization Details Last Modified Time Details Appointments None recorded. Lab test, urine 2024 025 [facility], [address], [address], [place], [address], 12:12:00 hbcab (hepatitis B core Ab) igm, serum 2024 025 [facility] (Lab), [address], [place], [address], 5 04:11:49 HBsAg (hepatitis B surface Ag), serum 2024 025 [facility] (Lab), [address], [place], [address], 5 04:11:49 hepatitis C virus Ab, serum 2024 025 [facility] (Lab), [address], [place], [address], 5 04:11:49 HIV 1+2 AB + HIV 1 p24 Ag, qualitative immunoassay , serum 2024 025 [facility] (Lab), [address], [place], [address], 5 10:43:34 RPR (rapid plasma reagin), serum 2024 025 [facility] (Lab), [address], [place], [address], 5 04:11:50 pap, IG + reflex HPV if ASC-U - if positive HPV run subtyping 16,18/45 add gc/ct/trich 2024 025 [facility] (Lab), [address], [place], [address], 14:17:06 test, urine 2020 [facility] [place], [facility] [address], [place], [address], 17:13:55 Referral None recorded. Procedures None recorded. Surgeries None recorded. Imaging None recorded. Medication Orders oxcarbazepi ne 300 mg tablet [id number] [id number], [address] [place], [place], [id number], 10:32:09 Patient TargetsNo targets recorded. Patient InstructionsNo instructions recorded. Reason for Referral None Reported. Results Created Date Observation Date Name Description Value Unit Range Abnormal Flag Note LastModifiedBy Organization Detail LastModifiedTime 02/26/20 21 02/25/2021 CULTU RE: GROUP B STREP SCREE N, REFLE X SUSCE PTIBI LITY result report SEE RESULT S BELOW abnormal Test: Cultu re: Group B Strep , Refle x Susce ptibi lity ([facility] ) Speci men Sourc e: Vagin a/Rec kianna Speci men Type: Vagin al/Re ctal Speci men Date: 2020 11:31 AM Resul t Date: 2020 3:38 PM Resul t Statu s: Final resul t Abnor mal: Yes Resul ting Lab: [facility] [address] [facility] [address] Tel: CULTU RE ----- ----- ----- --- Posit ginette for Strep tococ cus agala ctiae (Grou p B) (Abno rmal) Clind amyci n susce ptibl e, eryth romyc in resis tant. The clind amyci n induc tion test (D-t est) is negat ginette, there fore clind amyci n shoul d be clini jean pierre effec tive again st this isola te. Not Available [facility] (Lab) [address], [place], [address], 03/02/2021 16:41:04 04/30/2004/30/2021 pregn mary test, urine HCG negati ve Not Available [place] [address], [place], [address], 04/30/2021 17:13:20 02/23/20 25 02/22/2025 pregn mary test, urine HCG negati ve Not Available [place] [address], [place], [address], 02/22/2025 12:11:53 02/19/20 21 02/18/2021 US, obste tric, follo w-up No observ ation record ed. [email or web address] [place] [address], [place], [address], 02/18/2021 13:15:05 02/19/20 21 02/18/2021 US, obste tric, follo w-up No observ ation record ed. [email or web address] [address], [place], [address], 03/18/2021 10:56:49 Result Notes None recorded. Problems Name Problem SNOMED Code Status Onset Date Resolution Date Notes Provider Name and Address Organization Details Recorded Time Oligohyd ramnios 32089235 Completed H/O oligo - Check CHRISSY in 3rd trimeste r Birdie Peyton null, [facility] 1 12:44:29 Depressi ve disorder 93404020 Completed Zoloft - changed to fluoxeti ne - referral to [facility] sent 01/23 [place] location Birdie Peyton null, [facility] 12:44:29 Pregnanc y, childbir th and puerperi um finding Completed 201408/26/2020 Encounte r for supervis ion of normal first pregnanc y, second trimeste r;Record ed Elsewher e: No Locat ion: [facility] S ource: EHR Respiratory Technician wilma: N Practi ce ID: 0001 Wyatt lable Time: 01:45:00 PM Leah Gamble[facility]le [facility], [facility] 16:30:37 Pregnanc y, childbir th and puerperi um finding Completed 201408/26/2020 Encounte r for supervis ion of normal first pregnanc y, third trimeste r;Record ed Elsewher e: No Locat ion: [facility] S ource: EHR Respiratory Technician wilma: N Practi ce ID: 0001 Wyatt lable Time: 02:30:00 PM Kimberlypiter Gamble[facility], [facility] 16:30:40 Oligohyd ramnios Completed 201408/26/2020 Oligohyd ramnios, unsp trimeste r, not applicab le or unsp;Pra ctice ID: 0001 Leah Olivo null, [facility] 1 16:30:12 Uses combined oral contrace ption [id number] Completed 201508/26/2020 Encounte r for initial prescrip tion of contrace ptive pills;Re corded Elsewher e: No Locat ion: [facility] S ource: EHR Respiratory Technician wilma: N Rangelti ce ID: 0001 Wyatt lable Time: 10:30:00 AM [facility] 16:30:51 Postpart um depressi on [id number] Completed 201508/26/2020 Postpart um depressi on;Recor ded Elsewher e: No Locat ion: [facility] S ource: EHR Respiratory Technician wilma: N Rangelti ce ID: 0001 Wyatt lable Time: 10:30:00 AM Leah Olivo [facility], [facility] 16:30:32 Procedur e by method Completed 201508/26/2020 Encounte r for family planning advice;R ecorded Elsewher e: No Locat ion: [facility] S ource: EHR Respiratory Technician wilma: N Rangelti ce ID: 0001 Wyatt lable Time: 11:00:00 AM Leah Olivo [facility], [facility] 1 16:30:02 Body mass index 30+ - obesity 282303995 Active 2015 [facility] 1 14:04:19 Pregnanc y detectio n examinat ion Completed 201508/26/2020 Encounte r for pregnanc y test, result positive ;Recorde d Elsewher e: No Locat ion: [facility] S ource: EHR Respiratory Technician wilma: N Rangelti ce ID: 0001 Wyatt lable Time: 02:45:00 PM Leah Olivo [facility], [facility] 16:30:34 Secondar y amenorrh ea [id number] Completed 201508/26/2020 Secondar y amenorrh ea;Recor ded Elsewher e: No [facility] Respiratory Technician wilma: N Practi ce ID: 0001 Wyatt lable Time: 02:45:00 PM Leah loomis, [facility] 16:30:45 Uterine size for dates discrepa ncy Completed 201508/26/2020 Uterine size-mikey e discrepa ncy, third trimeste r;Record ed Elsewher e: No Locat ion: [facility] S ource: EHR Respiratory Technician wilma: N Practi ce ID: 0001 Wyatt lable Time: 05:00:00 PM Leah loomis, [facility] 16:31:02 Vomiting of pregnanc y 83415338 Completed 201508/26/2020 Late vomiting of pregnanc y;Practi ce ID: 0001 Leah Olivo [facility], [facility] 16:31:05 Gestatio n period, 29 weeks 42273652 Completed 201508/26/2020 29 weeks gestatio n of pregnanc y;Practi ce ID: 0001 Leah Olivo [facility], [facility] 16:30:15 Gestatio n period, 32 weeks 6621532 Completed 201508/26/2020 32 weeks gestatio n of pregnanc y;Practi ce ID: 0001 Leah Olivo [facility], [facility] 16:30:17 Medical examinat ion for suspecte d conditio n Completed 201508/26/2020 Encntr for susp prob w amnio cavity and membrane ruled out;Kobi rded Elsewher e: No [facility] S ource: EHR Respiratory Technician wilma: N Practi ce ID: 0001 Wyatt lable Time: 05:00:00 PM Leah loomis, [facility] 16:30:28 Gestatio n period, 33 weeks 02746269 Completed 201508/26/2020 33 weeks gestatio n of pregnanc y;Practi ce ID: 0001 Leah Olivo null, [facility] 16:30:18 Normal pregnanc y in multigra dirk [id number] 4106 Completed 201508/26/2020 Encounte r for suprvsn of normal pregnanc y, third trimeste r;Practi ce ID: 0001 Leah loomis, [facility] 16:30:30 Clinical finding Completed 201508/26/2020 Suprvsn of preg w insuffic ient antenat care, unsp trimeste r;Practi ce ID: 0001 Leah Olivo null, [facility] 16:29:55 finding Completed 201508/26/2020 Matern care for oth or susp poor fetl grth, third tri, unsp;Pra ctice ID: 0001 Leah loomis, [facility] 16:30:09 Gestatio n period, 35 weeks 32466778 Completed 201508/26/2020 35 weeks gestatio n of pregnanc y;Practi ce ID: 0001 Leah Olivo null, [facility] 16:30:20 Gestatio n period, 37 weeks 79467263 Completed 201508/26/2020 37 weeks gestatio n of pregnanc y;Practi ce ID: 0001 Leah Olivo null, [facility] 16:30:21 Single live from singleto n pregnanc y [id number] Completed 201508/26/2020 Single live ;Pr actice ID: 0001 Leah loomis, [facility] 16:30:46 Gestatio n period, 39 weeks 18070175 Completed 201508/26/2020 39 weeks gestatio n of pregnanc y;Practi ce ID: 0001 Leah loomis, [facility] 16:30:23 Lochia finding Completed 201608/26/2020 Encounte r for routine postpart um follow-u p;Practi ce ID: 0001 Leah Olivo [facility], [facility] 16:30:26 Abnormal uterine bleeding [id number] 100 Completed 201608/26/2020 Other specifie d abnormal uterine and vaginal bleeding ;Practic e ID: 0001 Leah Olivo [facility], [facility] 16:30:58 Insertio n of intraute rine contrace ptive device Completed 201608/26/2020 Encounte r for insertio n of intraute rine contrace ptive device;P ractice ID: 0001 Leah loomis, [facility] 16:30:24 Pregnanc y test negative [id number] Completed 201608/26/2020 Encounte r for pregnanc y test, result negative ;Practic e ID: 0001 Leah loomis [facility] 16:30:36 Clinical finding Completed 201608/26/2020 Presence of (intraut erine) contrace ptive device;R ecorded Elsewher e: No Locat ion: [facility] S ource: EHR Respiratory Technician wilma: N Practi ce ID: 0001 Wyatt lable Time: 10:45:00 AM [facility] 16:29:59 Contrace ptive sheath status [id number] Completed 201608/26/2020 Encounte r for routine checking of intraute rine contrace p dev;Prac agustina ID: 0001 Leah [facility] 16:30:[address] Concept Completed 201608/26/2020 Encntr for wrist liner exam (general ) (routine ) w/o abn findings ;Practic e ID: 0001 Leah [facility] 16:30:49 Surveill ance of contrace ption Completed 201608/26/2020 Encounte r for surveill ance of contrace ptives, unspecif ied;Kobi rded Elsewher e: No Locat ion: [facility] S ource: EHR Respiratory Technician wilma: N Practi ce ID: 0001 Wyatt lable Time: 01:00:00 PM Leah [facility] 16:30:[address] Concept Completed 201608/26/2020 Encntr for routine child health exam w/o abnormal findings ;Recorde d Elsewher e: No Locat ion: [facility] S ource: EHR Respiratory Technician wilma: N Practi ce ID: 0001 Wyatt lable Time: 01:00:00 PM [facility] 16:30:48 Carla ry postpart um mood disturba nce [id number] Completed 201608/26/2020 Postpart um mood disturba nce;Prac agustina ID: 0001 Leah [facility] 16:31:00 Emotiona l state finding Completed 201708/26/2020 Other specifie d anxiety disorder s;Practi ce ID: 0001 Leah lOivo [facility] 16:30:05 Evaluati on finding Completed 201708/26/2020 Abnormal Pap smear of cervix;R ecorded Elsewher e: No Locat ion: [facility] S ource: EHR Respiratory Technician wilma: N Practi ce ID: 0001 Wyatt lable Time: 09:00:00 AM [facility] 16:30:07 Removal of intraute rine device Completed 201808/26/2020 Encounte r for removal of intraute rine contrace ptive device;P ractice ID: 0001 Leah [facility] 16:30:42 Pregnanc y [id number] Completed 202003/28/2021 Birdie Todd [facility], [facility] 12:44:34 Choroid plexus cyst 678107341 Completed 202012/09/2020 bilat - RESOLVED Birdie Todd [facility] 12:44:29 Problem Notes None recorded. Procedures Surgical History Date Name Laterality Status Provider Name and Address Organization Details Recorded Time 5 IUD Removal completed ENOCH Levy [address], [place], [address], [facility] 02/23/2025 09:15:29 1 IUD Insertion completed Jarad Decker MD [address], [place], [address], [facility] 04/30/2021 17:38:45 Date of Last Pap Smear completed Mercedes Shau [facility] 09/03/2020 10:23:34 Imaging Results None recorded. Procedure Notes None recorded. Medical Equipment None Reported. Allergies Allergen ID Allergen Name Allergen Category Reaction Reaction Severity Criticality Documentation Date Start Date Code Code System Note Provider Name and Address Organization Details Recorded Time 74425 buspirone medicatio n Not available Not available Not available 02/07/2025 1827 [facility] 10:32:28 Medications Name Sig Start Date Stop Date Status Note LastModified by Organization Details LastModified Time hydrocort isone 0.5 % topical cream APPLY TOPICALL Y TO THE AFFECTED AREA EVERY 12 HOURS NEEDED 02/07 completed Not Available Not Available Not Available fluconazo le 150 mg tablet TAKE 1 TABLET BY MOUTH 1 TIME FOR 1 DAY 02/07 completed Not Available Not Available Not Available ondansetr on HCl 4 mg tablet TAKE 1 TABLET BY MOUTH EVERY 8 HOURS active Not Available Not Available No t Available prednison e 20 mg tablet TAKE 1 TABLET BY MOUTH EVERY DAY FOR 5 DAYS 05/26 completed Not Available Not Available Not Available sertralin e 100 mg tablet TAKE 1 TABLET BY MOUTH EVERY DAY 04/16 completed Not Available Not Available Not Available metronida zole 500 mg tablet TAKE 1 TABLET BY MOUTH EVERY 12 HOURS FOR 5 DAYS 02/22 completed Not Available Not Available Not Available oxcarbaze pine 300 mg tablet TAKE 1 TABLET BY MOUTH TWICE DAILY 02/07 completed Not Available Not Available Not Available ciproflox acin 500 mg tablet TAKE 1 TABLET BY MOUTH EVERY 12 HOURS FOR 5 DAYS 02/22 completed Not Available Not Available Not Available acetamino phen 500 mg tablet TAKE 2 TABLETS BY MOUTH EVERY 6 HOURS NEEDED FOR PAIN active Not Available Not Available No t Available Metrogel Vaginal 0.75 % (37.5 mg/5 gram) insert 1 applicat orful by vaginal route for 5 nights at bedtime 01/30 completed Prescrib abigail Casanova e: No Locat ion: [facility] M odify By: [email or web address] Jiménez ncountfrance DateTime : 05/05/20 18 11:21:02 AM Not Available Not Available Not Available buspirone 10 mg tablet TAKE 1 TABLET BY MOUTH TWICE DAILY 02/07 completed Not Available Not Available Not Available sertralin e 25 mg tablet TAKE 1 TABLET BY MOUTH ONCE DAILY 09/03 completed Not Available Not Available Not Available ibuprofen 600 mg tablet TAKE 1 TABLET BY MOUTH THREE TIMES DAILY NEEDED FOR PAIN active Not Available Not Available No t Available ondansetr on 4 mg disintegr ating tablet DISSOLVE 1 TABLET ON THE TONGUE EVERY 8 HOURS NEEDED FOR NAUSEA OR VOMITING active Not Available Not Available No t Available fluoxetin e 20 mg capsule TAKE 1 CAPSULE BY MOUTH EVERY DAY 02/07 completed Not Available Not Available Not Available sertralin e 50 mg tablet TAKE 1 TABLET BY MOUTH EVERY DAY 12/30 completed Not Available Not Available Not Available dicyclomi ne 10 mg capsule TAKE 1 CAPSULE BY MOUTH TWICE DAILY NEEDED FOR ABDOMINA L PAIN active Not Available Not Available No t Available loratadin e 10 mg tablet TAKE 1 TABLET BY MOUTH ONCE DAILY NEEDED 02/07 completed Not Available Not Available Not Available Lexapro 10 mg tablet take 1 tablet by oral route every day 04/09 completed Prescrib ed Elsewher e: No Locat ion: [facility] odify By: [email or web address] Encounte r DateTime : 07/29/19 16 10:30:00 AM Not Available Not Available Not Available Wellbutri n XL 300 mg 24 hr tablet, extended release take 1 tablet by oral route every day 01/30 completed Prescrib ed Elsewher e: No Locat ion: [facility] odify By: yi goldman DateTime : 06/02/20 18 03:15:00 PM Not Available Not Available Not Available Slow Fe 02/07 completed Iron Not Available Not Available Not Available 04/16 completed Not Available Not Available Not Available Triveen-D uo DHA 29 mg-1 mg-400 mg oral pack take 1 by Oral route once for 30 days 05/08 completed Prescrib ed Elsewher e: No Locat ion: [facility] odify By: [email or web address] garciauntfrance DateTime : 04/09/20 16 02:45:00 PM Not Available Not Available Not Available Lomedia 24 Fe 1 mg-20 mcg (24)/75 mg (4) tablet take 1 tablet by oral route every day 04/09 completed Prescrib ed Elsewher e: No [facility]at [facility] odify By: [email or web address] Sher danielson DateTime : 07/12/19 16 10:30:00 AM Not Available Not Available Not Available Nuvessa 1.3 % (65 mg/5 gram) vaginal gel insert 1 applicat orful by vaginal route once at bedtime 01/30 completed Prescrib ed Elsewher e: No [facility] By: amroderick goldman DateTime : 06/02/20 18 03:15:00 PM Not Available Not Available Not Available Vitals Date Recorded Body height Body mass index (BMI) Body weight Systolic And Diastolic Provider Name and Address Organization Details Last Updated DateTime 02/07/2025 170.18 cm 29.1 kg/m2 98790.18 g 112/74 mm[Hg] [facility] 02/07/2025 10:31:38 Date Recorded Body height Body mass index (BMI) Body weight Systolic And Diastolic Provider Name and Address Organization Details Last Updated DateTime 02/22/2025 170.18 cm 28.7 kg/m2 81027.4 g 116/76 mm[Hg] [facility] 02/22/2025 11:57:51 Date Recorded Body height Body mass index (BMI) Body weight Systolic And Diastolic Provider Name and Address Organization Details Last Updated DateTime 03/19/2021 170.18 cm 33.5 kg/m2 37721.767 18 g 122/75 mm[Hg] Mercedes Sahu [facility] 03/19/2021 10:10:50 Date Recorded Body height Body mass index (BMI) Body weight Systolic And Diastolic Provider Name and Address Organization Details Last Updated DateTime 04/16/2021 170.18 cm 31.5 kg/m2 15996.07 g 118/75 mm[Hg] Promise Sevilla [facility] 04/16/2021 15:23:50 Date Recorded Body height Body mass index (BMI) Body weight Systolic And Diastolic Provider Name and Address Organization Details Last Updated DateTime 04/30/2021 170.18 cm 31.5 kg/m2 68340.07 g 111/65 mm[Hg] Promise Sevilla [facility] 04/30/2021 17:09:29 Social History Question Answer Notes LastModified by Organizat ion Details LastModified Time Tobacco Smoking Status Never Smoker Not Available [facility] 05/07/2020 03:28:11 In The 14 Days Before Symptom Onset, Have You Had Close Contact With A Laboratory-confirm ed COVID-19 While That Case Was Ill? No Information n ot available 02/07/2025 In The 14 Days Before Symptom Onset, Have You Had Close Contact With A Person Who Is Under Investigation For COVID-19 While That Person Was Ill? No [email or web address] Information not available 02/07/2025 Have You Been To An Area Known To Be High Risk For COVID-19? No Information not available 02/07/2025 Sex: Unknown Functional Status None recorded. Mental Status None recorded. Family History Relationship Description Onset Age of this Age Resolved Age Notes LastModified by Organization Details LastModified Time Father Hypertensive disorder [email or web address] Not available 2019 12:12:49 Maternal Grandmother Carcinoma in situ of breast [email or web address] Not available 2019 12:13:00 Mother Diabetes mellitus [email or web address] Not available 2024 10:35:06 Medical History Condition Response Allergies (Food, seasonal, environmental ) N Other N Blood Transfusion N Drug/Latex Allergies/Reactions N Breast Cancer N Dermatologic Disorders N Lung Disease N Defects or Inherited Disease N Breast Problem N Gestational Diabetes N Hematologic disorders N Anesthesia Complications N History of STI N Deep Vein Thrombosis N Polycystic ovary syndrome N Anxiety Disorder Y Autoimmune disease N Arthritis N Infertility N Polyps N Acid Reflux (GERD) N History of abnormal pap Y Cancer N Stroke N Varicosities N Neurologic/Epilepsy N Endometriosis N High Cholesterol N Headaches N Fibromyalgia N Kidney Disease N Heart Problems N Kidney or Bladder Problems N Thyroid Problems N GI Problems N Eating Disorder N Anemia N Art (IVF or FET) N Psychiatric Illness N Ovarian Cancer N Diabetes N Pulmonary (TB, Asthma) N Hepatitis/Liver Disease N No Past Medical History N Eczema N Urinary Tract Infection N Abuse/Domestic Violence N Asthma N Trauma/Violence N Depression/ depression Y Heart Disease N Pre-Eclampsia N Hypertension N Osteoporosis N Thrombophilias N Gynecological History Statement/Question Response Date of LMP STIs/STDs N Was last menstrual period normal N Current Control Method None Are cycles usually normal N Sexually Active? Y Menses Monthly N Date of Last Pap Smear 09/03/2020 Sexual Problems? N Desired Control Method Seeking Pre gnancy LMP Unknown Obstetrics History GPAL:G 3 P 3 0 0 3 Type Value Full Term 3 Living 3 Total 3 Past Encounters Encounter ID Performer Location Encounter Start Date Encounter Closed Date Diagnosis/Indication Diagnosis SNOMED-CT Code Diagnosis ICD10 Code Diagnosis IMO Codes Diagnosis Note [id number] , [facility] [address] [address] 11/30/2019 13:06:14 11/30/2019 14:56:42 Gynecologic examination [id number] Z01.419 Take Calcium with Vitamin D 1200mg daily if not receiving in daily diet. It is strongly advised to have an annual flu shot and up can obtain at most pharmacies . If you have not had a TDap shot in the last 10 years you should obtain one as well. Discussed with patient & provided with informatio n regarding Gardisil vaccine to prevent the 4 strains for HPV that cause cervical cancer. Encourage safe sexual practices, to use condoms and limit partners if not already in a monogamous relationsh ip. Do monthly self breast exams. BRCA testing is now available for patients with strong genetic history of female cancer. If interested contact the office. Engage in daily exercise of low impact aerobic exercise 45-60 minutes 4-5 times weekly. Avoid tobacco, illicit drugs, and alcohol. This lifestyle behavior pattern will lead to less health conditions and longer life span. If BMI greater than 25 weight watchers or dietary consult advised. Pap smear is not recommende d prior to the age of 21. If you have any concerns, pelvic, or vaginal problems we can discuss testing. Patient received above instructio ns, and questions have been answered. If you have any questions please call or respond to this email. Patient was made aware of the patient portal and may obtain a paper copy of today's plan if desired. Generalize d anxiety disorder [id number] F41.1 Previously on Zoloft for anxiety. Weaned off to see if she still needed it. Feels her anxeity has returned. No suidical ideations/ harmful thoughts. With Covid & current work situation feels it is weighing on her anxiety. WOuld like to restart Zoloft. RTO x 2 wks Virtual visit to discuss if needs dosage adjustment s. [id number] [address]AN [place] [address] [address] 09/03/2020 09:56:19 09/03/2020 16:22:52 Gynecologic examination [id number] Z01.419 test positive [id number] Z32.01 Risk factors addressed: Tobacco Cessation, Safe Sexual Practices, environmen rosa maria, work hazards, travel restrictio ns, seat belt use. Occasional use of mj. Discussed risks. Eat a health well balanced diet, avoid alcohol, tobacco, and street drugs. Engage in daily low impact exercise, avoid temperatur e extremes, and cat, rodent, and bird feces.Avoi d travel to areas where zika virus is a concern.Of fered cf/sma/nip t. Pt declined all genetic screening/ testing. Handouts given and discussed with patient.Ch ildbirth classes recommende d.New OB sheet given. If previous , counseling .Pt verbalizes that she understand s the importance of above instructio ns.All questions were answered. Patient reminded to have annual well woman examinatio n and address [facility] . [id number] Jarad Decker MD [place] [address],[place] [address] 09/03/2020 09:57:14 09/04/2020 08:16:13 [id number] Jarad Decker MD [place] [address],[place] [address] 09/19/2020 11:52:48 09/19/2020 12:44:16 screening [id number] Z36.82 [id number] Jarad Decker MD [place] [address],[place] [address] 09/19/2020 12:05:45 09/19/2020 15:08:06 Routine care [id number] Z34.82 [id number] Mariely Chacon [facility] [address],[place] [address] 10/14/2020 11:05:34 10/14/2020 14:43:13 Routine care [id number] Z34.90 [id number] Jarad Decker MD [place] [address],[place] [address] 10/14/2020 11:05:02 10/15/2020 08:21:39 [id number] Mariely Chacon [facility] [address],[place] [address] 11/11/2020 10:21:54 11/11/2020 14:04:55 Routine care [id number] Z34.90 Depressive disorder 3548 9007 F32.9 [id number] Jarad Decker MD [place] [address],[place] [address] 11/11/2020 10:00:28 11/11/2020 11:48:42 screening for malformation [id number] Z36.3 [id number] Mariely Chacon [facility] [address],[place] [address] 12/09/2020 09:50:10 12/09/2020 14:11:35 Routine care [id number] Z34.90 [id number] Jarad Decker MD [place] [address],[place] [address] 12/09/2020 09:49:34 12/09/2020 10:50:13 screening [id number] Z36.2 [id number] Mariely Chacon [facility] [address],[place] [address] 12/30/2020 10:02:44 12/30/2020 10:33:43 Routine care [id number] Z34.90 [id number] Lara Buitrago MD [place] [address],[place] [address] 01/14/2021 11:45:53 01/15/2021 16:53:17 Routine care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 With TB Or Exposed To TB false Patient Or Partner Has History Of Genital Herpes false Rash Or Viral Illness Since Last Menstrual Perio d false History Of STD, Gonorrhea, Chlamydia, HPV, Syphi lis false Other Infection History false History of HIV false History of Hepatitis false Prior GBS-infected child false Hemoglobinopathy Or Carrier false Other Structural Defect false Recent Travel History Outside of Country false Delivery Information Delivery Date Delivery Type Labor Anesthesia Weeks Gestation Incision Type Labor Labor Length Hrs Delivered By Post Complications Tubal Sterilization Discharge Date Comments 1 Induce d None 39 false Jarad Decker MD Gbs+ Discharge Information Feeding Method Contraceptive Method Maternal HG B and HCT Levels
--- NOTE | 2025-04-08 21:27 | ED_ITS ---
HPI - Skin/Abscess/Foreign Bdy General Chief complaint: Unspecified Stated complaint: drainage from belly button Time Seen by Provider: 04/08/25 20:18 Source: patient Mode of arrival: ambulatory Limitations: no limitations History of Present Illness HPI narrative: Patient presents with report of redness within her umbilicus as well as drainage, yellow and red discharge. There had been crusting. 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 She reports that she is on her menstrual cycle and has had heavy menses. Has gone through a box of feminine products. This is her first period after having her IUD removed recently. She has been in and out of the ED over the past month, ovarian cyst. 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 No fevers but has been chilled although this is normal for her. Denies IVDU or history of MRSA although she did have Staph behind her right ear when she was 5 years old that required a few doses of amoxicillin. Not currently on antibiotics. . Reports she has poor circulation, frequently has purple discoloration to nails. Has had decreased PO Intake. OBGyn Dr Decker's mother tester. pcp Yoav. Related Data Allergies Allergy/AdvReac Type Severity Reaction Status Date / Time buspirone (From BuSpar) Allergy Hives Verified 02/19/25 10:19 [facility] Past Medical History Medical History (Updated 04/11/25 @ 02:52 by Sindi Del Castillo MD) Encounter for IUD removal 2024 BMI 31.0-31.9,adult Gall bladder disease Diabetes Anxiety Surgical History Surgical History No significant past surgical history Family History Family History Father Hypertension Mother Anxiety Depression Gall bladder pain Sibling Anxiety Depression Grandparent Breast cancer Alzheimer disease Social History Social History Social History: Smoking status: Never smoker Tobacco type: cigarettes Second hand tobacco smoke exposure: No Alcohol intake: former Substance use: current Substance use type: marijuana Other substance usage details: Every few days Living arrangements: with family Additional living arrangements comments: Occupation/Education: occupation Additional occupation/education comments: auto body repair estimator Gender identity (if verbalized by the patient): Female Spiritual care concerns: No Exam 2 Narrative: GENERAL: Well-appearing, well-nourished, and in no acute distress. HEAD: Normocephalic, atraumatic. EYES: Non injected, non icteric. No conjunctival pallor. ENT: Nares clear, no rhinorrhea or epistaxis. Gross auditory acuity intact. Lips are not cyanotic. NECK: Supple. No meningismus. CHEST: Speaking in full sentences. No respiratory distress. HEART: Regular rate and rhythm. . ABDOMEN: Soft, nondistended. No rigidity or guarding. Not peritoneal EXTREMITIES: Normal range of motion. Patient does have slight discoloration with purplish nailbeds, concernign for cyanosis. SKIN: Warm, dry. Piercing located superior to umbilicus is without surrounding erythema but within the umbilicus itself is erythematous skin. No bleeding. No active drainage. NEURO: No focal deficits. Alert and oriented. Answering questions. Following commands. Normal speech without aphasia or dysarthria. PSYCH: Normal mood and affect. Course Vital Signs Vital signs: Vital Signs Temperature 97.9 F 04/08/25 19:43 Pulse Rate 83 04/08/25 19:43 Respiratory Rate 13 04/08/25 19:43 Blood Pressure 118/67 04/08/25 19:43 Pulse Oximetry 100 04/08/25 19:43 Oxygen Delivery Room Air 04/08/25 19:43 Temperature 97.4 F L 04/08/25 22:45 Pulse Rate 78 04/08/25 22:45 Respiratory Rate 16 04/08/25 22:45 Blood Pressure 120/68 04/08/25 22:45 Pulse Oximetry 100 04/08/25 22:45 Oxygen Delivery Room Air 04/08/25 19:43 MDM - Skin/Abscess/Foreign Bdy MDM Narrative Medical decision making narrative: Patient presents with drainage of yellow/red discharge from her umbilicus. 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 Piercing changed approximately 1 week ago. Also having heavy menstrual cycle, her first menstrual cycle since IUD removal. In the emergency department they are afebrile with vital signs within normal limits. There does appear to be erythema within the umbilicus but nothing draining to culture. The erythema does not spread to/involve the adjacent piercing. CRP normal. Normal renal function. Cbc without leukocytosis or anemia. ESR normal. Will treat for cellulitis. First dose given in the ED. Single antibiotic coverage seems appropriate. Given return precautions. Advised to follow up with PCP and ObGyn respectively. Differential Diagnosis Differential diagnosis: Likely abscess of skin or subcutaneous tissue, dermatophytosis, cellulitis, eczema, impetigo and contact dermatitis Lab Data Attestation: I reviewed the patient's lab results. 04/08/25 21:48 04/08/25 21:48 Labs: Lab Results 04/08/25 Range/Units 21:48 WBC 8.9 (4.5-10.0) K/mm3 RBC 4.16 L (4.2-5.4) M/mm3 Hgb 12.6 (12.0-15.0) g/dL Hct 37.5 (37.0-47.0) % MCV 90.1 (80-100) fl MCH 30.3 (26-34) pg MCHC 33.6 (32-36) g/dl RDW 12.4 (11.5-14.5) % Plt Count 286 (150-375) k/mm3 MPV 9.6 (7.4-10.4) fl Immature Gran % (Auto) 0.4 (0-0.5) % Neut % (Auto) 63.6 (45.5-73.1) % Lymph % (Auto) 27.8 (18.3-44.2) % Norman % (Auto) 5.9 (2.6-8.5) % Eos % (Auto) 1.7 (0-4.4) % Baso % (Auto) 0.6 (0.2-1.2) % Lymph # (Auto) 2.48 (0.9-3.2) K/mm3 Norman # (Auto) 0.5 (0.1-0.6) K/mm3 Eos # (Auto) 0.2 (0-0.3) K/mm3 Baso # (Auto) 0.1 (0.0-0.1) K/mm3 Abs Immat Gran (auto) 0.04 H (0.00-0.031) K/mm3 Absolute Neuts (auto) 5.7 (1.3-6.7) K/mm3 Absolute Nucleated RBC 0.000 (0.0-0.012) K/mm3 Nucleated RBC % 0.0 (0.0-0.2) % ESR 13 (0-20) mm/hr Sodium 137 (137-145) mmol/L Potassium 4.0 (3.4-5.0) mmol/L Chloride 104 (98-107) mmol/L Carbon Dioxide 26 (22-30) mmol/L Anion Gap 7 (4-12) mmol/L BUN 10 (7-17) mg/dL Creatinine 0.60 L (0.7-1.0) mg/dL Estim Creat Clear Calc 134 ml/min Estimated GFR > 60 (59 - ) Glucose 83 (65-110) mg/dL Calcium 9.0 (8.4-10.2) mg/dL C-Reactive Protein < 0.5 (<1.0) mg/dL Discharge Plan Discharge Clinical Impression: Infected pierced umbilicus, Cellulitis of umbilicus, Menorrhagia Patient Disposition: Home Condition: Stable Instructions: Antibiotic Form, Cellulitis (ED), Menorrhagia (ED) Additional Instructions: For the infection within your belly button, continue taking the course of antibiotics prescribed. Acetaminophen/Tylenol (maximum 4000 mg per day) is safe to take with NSAIDs (ibuprofen/Motrin) for pain relief. Follow-up with your primary care physician. Return to the emergency department any new or worsening symptoms. For your heavy menstrual cycle, follow-up with your Ob Gyne. Return to the emergency department if you have a fever greater than 100.4? F, intractable pain not responding to medication, or you are saturating 2 maxi pads an hour for 2-3 hours. Patient Language: Dominican Prescriptions: New cephalexin 500 mg tablet 500 mg PO Q8H 5 Days Qty: 15 0RF Rx Instructions: Substitution with capsules okay No Action ibuprofen 600 mg tablet 600 mg PO TID PRN (Reason: pain) Qty: 30 0RF acetaminophen 500 mg capsule 1,000 mg PO Q6H PRN (Reason: pain) Qty: 30 0RF Follow-up/Referrals: Jarad Decker MD [Physician, [facility] [facility]] Johnie Cason MD [Primary Care Provider, Family Practice] Stand Alone Forms: Work/School Release IP Time of Disposition: 22:17
[2025-04-08 21:53] LABS: Hematocrit 37.5 % (37.0-47.0); Hemoglobin 12.6 g/dL (12.0-15.0); Immature Granulocyte Percent A 0.4 % (0-0.5); Lymphocytes Absolute Auto 2.48 K/mm3 (0.9-3.2); Mean Corpuscular HGB Conc 33.6 g/dl (32-36); Mean Corpuscular Hemoglobin 30.3 pg (26-34); Mean Corpuscular Volume 90.1 fl (80-100); Nucleated Red Blood Cells Absolute Auto 0.000 K/mm3 (0.0-0.012); Nucleated Red Blood Cells Perc 0.0 % (0.0-0.2); Platelet Count Result 286 k/mm3 (150-375); Red Blood Count 4.16 M/mm3 (4.2-5.4); White Blood Count 8.9 K/mm3 (4.5-10.0)
[2025-04-08] MEDS: ACETAMINOPHEN 500 MG TABLET 1000 MG PO (21:55)
[2025-04-08] MEDS: KETOROLAC 30 MG/ML VIAL (*BKC) 15 MG IM (21:55)
[2025-04-08] MEDS: CEPHALEXIN 500 MG CAPSULE PO (21:55)
[2025-04-08 22:06] LABS: Anion Gap 7 mmol/L (4-12); Blood Urea Nitrogen 10 mg/dL (7-17); CRP < 0.5 mg/dL (<1.0); Calcium 9.0 mg/dL (8.4-10.2); Carbon Dioxide 26 mmol/L (22-30); Chloride 104 mmol/L (98-107); Estimated CRCL calculation 134 ml/min; Estimated Glomerular Filt Rate > 60; Glucose 83 mg/dL (65-110); Potassium 4.0 mmol/L (3.4-5.0); Sodium 137 mmol/L (137-145)
[2025-04-08 22:45] VITALS: BP 120/68; PULSE 78; RESP 16; TEMP 36.3; O2SAT 100
== END 2025-04-08 22:50 | disposition home or self-care (01) ==
PROVIDERS: Emergency Provider Student in an Organized Health Care Education/Training Program; PCP Family Medicine
DX: L08.82 Omphalitis not of newborn (principal); L03.316 Cellulitis of umbilicus; N92.0 Excessive and frequent menstruation with regular cycle; E11.9 Type 2 diabetes mellitus without complications; F41.9 Anxiety disorder, unspecified
CPT/HCPCS: 36415; 80048; 85025; 85652; 86140; 96372; 99283; A9270; J1885